=== PATIENT | male | born 1955 | race Caucasian/White ===

== ENCOUNTER 2020-03-02 20:28 | Emergency (ER) | payer SELFPAY ==
[2020-03-02] MEDS ORDERED: ESMOLOL HCL INJ/PF 100 MG/10 ML SDV IV ONE (20:35)
[2020-03-02] MEDS ORDERED: TENECTEPLASE INJ 50 MG KIT IV ONE ×2 (20:47→22:00)
[2020-03-02] MEDS ORDERED: EPINEPHRINE INJ 1 MG/10 ML DISP.SYRIN ONE (22:00)
[2020-03-02] MEDS ORDERED: MAGNESIUM SULFATE PF/INJ 40 MEQ/10 ML SDV ONE (22:00)
[2020-03-02] MEDS ORDERED: SODIUM BICARBONATE 8.4% INJ 50 MEQ/50 ML DISP.SYRIN ONE (22:00)
--- NOTE | 2020-03-03 00:18 | ER Document Report ---
ED Resuscitation - General Stated Complaint: CARDIAC ARREST Cannot obtain history due to: Intubated Notes: 64-year-old male who was seen normal 10 minutes prior to his looking at the window and seeing him laying on the ground unresponsive. Patient apparently had one leg in a puddle and there was a fan there however the states the fan was completely disconnected so he could not have been electrocuted. EMS reports parts that he was in persistent ventricular fibrillation the entire time that they were there however he did have intermittent agonal respirations. They did give multiple doses of epinephrine, bicarb, 300 mg of amiodarone and attempt both traditional and dual sequential defibrillation without any change in his rhythm. After 27 minutes they did consult with me via medical command for EMS in the emergency department, at this point I instructed them to cease resuscitative efforts. When they stopped resuscitation the patient remained in V. fib but made some efforts at respiration so they resumed CPR. Patient was then transported to the emergency department still in persistent ventricular fibrillation. Of note he did have end-tidal CO2 of at least 35 or greater the entire time. Glucose was elevated. did denies any prodrome or symptoms prior to arrest. Arrest was unwitnessed. There was not bystander CPR. Patient has had bypass surgery and 5 stents. - HPI Witnessed arrest: No Bystander CPR?: No Down-time before ACLS: 10:00 Onset: Just prior to arrival - Paramedics initial findings Unresponsive: Completely Respirations: Agonal Rhythm: Ventricular fibrillation - Pre-hospital treatment Treatment: Bag-valve mask, CPR/thumper, Defibrillated, Intubated, Oxygen - Related Data Allergies/Adverse Reactions: ampicillin [Ampicillin] Allergy (Intermediate, Verified 02/01/14 06:17) Hives trimethoprim [From Septra] Allergy (Verified 02/01/14 06:16) sulfamethoxazole [From Septra] Adverse Reaction (Mild, Verified 02/01/14 06:17) " tongue cracked" Past Medical History - General Information source: Emergency Med Personnel Cannot obtain history due to: Intubated - Social History Smoking Status: Current Every Day Smoker Family History: CAD - Father from a heart attack in his 60s. - Past Medical History Cardiac Medical History: Reports: Hx Coronary Artery Disease, Hx Hypertension Past Surgical History: Reports: Hx Cardiac Catheterization - stents, Hx Cardiac Surgery - cabg, Hx Coronary Artery Bypass Graft - 3 vessel CABG, Hx Coronary Stent - x4 Review of Systems - Review of Systems -: Yes ROS unobtainable due to patient's medical condition Physical Exam - Vital signs Notes: No spontaneous respirations, end-tidal CO2 is in the 40s, pulse ox with assisted respirations is approximately 70% which is hypoxic, rhythm is ventricular fibrillation, no pulse. - General General appearance: Unresponsive - HEENT Head: Normocephalic, Atraumatic Pupils: Dilated, Fixed Mouth/Lips: Other - ET tube in good position. Mucous membranes: Moist Pharynx: Blood in hypopharynx - Respiratory Notes: Intubated, no spontaneous respirations, lungs are clear during assisted respirations. - Cardiovascular Notes: Extremities are cyanotic, lunchroom monitor reveals ventricular fibrillation, no pulses. Bedside ultrasound reveals very faint twitching of the cardiac silhouette. - Abdominal Notes: Nondistended, no bowel sounds, soft, no rigidity. - Extremities Notes: No lesions, no spontaneous movement. There is a IO in the left proximal tibia. - Neurological Hari Coma Scale Eye Opening: None Hari Coma Scale Verbal: None - Intubated Hari Coma Scale Motor: None Hari Coma Scale Total: 3 Notes: No spontaneous movements. - Skin Skin Color: Cyanotic Course - Re-evaluation Re-evalutation: 03/03/20 00:26 ACLS protocol was followed, patient was given multiple rounds of epinephrine, we did attempt dual sequential defibrillation along with 300 mg of amiodarone and 50 mg of esmolol pushed together just prior to defibrillation. The patient actually went into PEA with this but then reverted back to ventricular fibrillation. Multiple attempts were made at defibrillation, we then after a final pulse check were prepared to declare time of however while in ventricular fibrillation without pulses for over an hour the patient then had some respiratory effort despite no perfusing rhythm, patient was then given half dose thrombolytics for presumed TN. Resuscitative efforts were continued for another 30 minutes, during this time he alternated back and forth between ventricular fibrillation and PEA. Patient was defibrillated as appropriate and continued to get epinephrine, magnesium was also attempted as was sodium bicarb. Blood sugar remained elevated. Final pulse and rhythm check were repeated, patient had no spontaneous movements, he had a few scattered ventricular beats on the monitor that were non-perfusing, this was PEA. Time of was called at 2116. Cause of is presumed to be ischemic cardiac disease, discussed with and daughter. Discharge - Discharge Clinical Impression: Cardiac arrest, Ischemic heart disease Disposition:
== END 2020-03-02 21:17 | disposition expired ==
LOC: ER 20:28
DX: I25.9 Chronic ischemic heart disease, unspecified (principal); I46.9 Cardiac arrest, cause unspecified; I49.01 Ventricular fibrillation; R73.9 Hyperglycemia, unspecified; I25.10 Atherosclerotic heart disease of native coronary artery without angina pectoris; I10 Essential (primary) hypertension; Z95.1 Presence of aortocoronary bypass graft; Z95.5 Presence of coronary angioplasty implant and graft; F17.200 Nicotine dependence, unspecified, uncomplicated; Z88.0 Allergy status to penicillin; Z88.1 Allergy status to other antibiotic agents; Z82.49 Family history of ischemic heart disease and other diseases of the circulatory system
CPT/HCPCS: 99285; 96374; 96375; J3101; J0171; J3475; J3490 ×2